=== PATIENT | female | born 1985 | race Caucasian/White ===

== ENCOUNTER 2022-06-28 13:15 | Emergency (ER) | payer OTHER, SELFPAY ==
[2022-06-28 13:28] VITALS: BP 138/94; PULSE 85; RESP 16; TEMP 36.9; O2SAT 100
[2022-06-28 13:36] VITALS: BP 138/94; PULSE 85; RESP 16; TEMP 36.9; O2SAT 100
--- NOTE | 2022-06-28 13:44 | ED.URI ---
HPI - URI/Sore Throat General Chief Complaint: Upper Respiratory Infection Stated Complaint: Sore Throat Time Seen by Provider: 06/28/22 13:49 Source: patient and RN notes reviewed Mode of arrival: ambulatory Limitations: no limitations History of Present Illness HPI Narrative: 36-year-old female presents with concern for sore throat. Reports symptoms started on after she was exposed to somebody with strep. She reports fever, chills, general malaise, sore throat. She also reports she has a history of asthma and is out of her inhaler and request a refill MD elicited complaint: sore throat Related Data Home Medications Medication Instructions Recorded Confirmed albuterol sulfate 90 mcg/actuation inhalation 06/28/22 aerosol inhaler Allergies Allergy/AdvReac Type Severity Reaction Status Date / Time No Known Allergies Allergy Verified 06/28/22 13:28 Review of Systems Review of Systems: CONSTITUTIONAL: Reports malaise, chills, sweats, fever. EYES: Denies visual changes, redness, or discharge. ENT: Reports rhinorrhea, congestion, otalgia and sore throat. CARDIOVASCULAR: Denies chest pain, palpitations, or edema. RESPIRATORY: Denies cough. Denies dyspnea. GASTROINTESTINAL: Denies abdominal pain, nausea, vomiting, diarrhea SKIN: Denies rash or itching. MUSCULOSKELETAL: Reports myalgia. NEUROLOGIC: Denies headache. All systems reviewed & are unremarkable except as noted in HPI and below PMFSH Comments At time of signature, agree with nursing past medical, surgical, social and family history. There is no relevant family history pertinent to the presenting complaint Exam Narrative: GENERAL: Well-appearing, well-nourished, and in no acute distress. HEAD: Normocephalic EYES: PERRLA, conjunctivae clear ENT: Nares clear, clear discharge. Mucous membranes moist. TM pearly sue with dull light reflex bilaterally; no tragal tenderness. Oropharynx erythematous without lesions. Tonsils enlarged with exudate, no drooling, no hoarseness, no trismus, uvula midline. NECK: Supple. No lymphadenopathy CHEST: Clear to auscultation, breath sounds equal. No wheezing, rhonchi, rales, or stridor. No respiratory distress, speaks in full sentences. HEART: Regular rate and rhythm. No murmur heard. SKIN: Warm, dry, no rash. NEURO: Alert and oriented x3. PSYCH: Normal mood and affect Course Course Emergency Course: Patient is aware of diagnosis, understands and agrees to treatment plan. Anticipatory guidance given. Patient agrees to follow-up as directed and is aware of reasons to seek care at the emergency department. Portions of this record may have been created with voice recognition software Level of Care: Express Care Visit Vital Signs Vital signs: Vital Signs Temperature 98.4 F 06/28/22 13:28 Pulse Rate 85 06/28/22 13:28 Respiratory Rate 16 06/28/22 13:28 Blood Pressure 138/94 H 06/28/22 13:28 Pulse Oximetry 100 06/28/22 13:28 Oxygen Delivery Room Air 06/28/22 13:28 Temperature 98.4 F 06/28/22 13:36 Pulse Rate 85 06/28/22 13:36 Respiratory Rate 16 06/28/22 13:36 Blood Pressure 138/94 H 06/28/22 13:36 Pulse Oximetry 100 06/28/22 13:36 Oxygen Delivery Room Air 06/28/22 13:36 Reviewed. MDM - URI/Sore Throat MDM Narrative Medical decision making narrative: Differential diagnosis considered: Hen[place] virus, strep pharyngitis, allergic rhinitis, upper respiratory tract infection, sinusitis, rhinosinusitis, nasopharyngitis. viral pharyngitis, otitis media, otitis externa, pneumonia, bronchitis, viral cough syndrome, viral syndrome, and influenza. Exam findings show no acute concerns or changes; patient is non-toxic appearing and is in no distress. Patient is appropriate for outpatient treatment and follow-up. Lab Data Attestation: I reviewed the patient's lab results. Labs: Strep Screen Positive Group A Strep *(Reference Ra
== END 2022-06-28 14:02 | disposition home or self-care (01) ==
PROVIDERS: Emergency Provider Nurse Practitioner; PCP Internal Medicine
DX: J02.0 Streptococcal pharyngitis (principal); J45.909 Unspecified asthma, uncomplicated
CPT/HCPCS: 87880; 99213; G0463

== ENCOUNTER 2022-06-28 22:03 | Emergency (ER) | payer OTHER, SELFPAY ==
[2022-06-28 22:30] VITALS: BP 116/77; PULSE 96; RESP 18; TEMP 36.3; O2SAT 100
--- NOTE | 2022-06-28 22:34 | PC.NURSE ---
Pt seen ambulating out of ED with steady gait
== END 2022-06-28 22:34 | disposition left against medical advice (07) ==
LOC: ANHED 22:50
PROVIDERS: PCP Internal Medicine
DX: R06.02 Shortness of breath (principal)
CPT/HCPCS: 99199

== ENCOUNTER 2023-01-05 12:34 | Emergency (ER) | payer OTHER, SELFPAY ==
[2023-01-05 12:44] VITALS: BP 134/93; PULSE 113; RESP 16; TEMP 36.9; O2SAT 99
--- NOTE | 2023-01-05 13:03 | ED.URI ---
HPI - URI/Sore Throat General Chief Complaint: Upper Respiratory Infection Stated Complaint: Asthma Time Seen by Provider: 01/05/23 13:03 Source: patient Mode of arrival: ambulatory Limitations: no limitations History of Present Illness HPI Narrative: 37 yo F with hx of asthma presents with c/o nasal congestion, sinus pressure, headaches for 10 days. Also has had cough. States asthma has been bothering her. Started steroids tuesday and was given breathing [facility]. Would like another neb today. Due to continued symptoms her work wants her to have a covid test. All systems reviewed and negative except as noted above. Related Data Allergies Allergy/AdvReac Type Severity Reaction Status Date / Time Penicillins Allergy Severe Dyspnea / Verified 01/05/23 12:54 SOB Review of Systems Review of Systems: CONSTITUTIONAL: Denies fever, chills, or sweats. reports fatigue. EYES: Denies visual changes, redness, or discharge. ENT: reports rhinorrhea, congestion, sore throat, or otalgia. CARDIOVASCULAR: Denies chest pain, palpitations, or edema. RESPIRATORY: reports cough and dyspnea. GASTROINTESTINAL: Denies abdominal pain, nausea, vomiting, or diarrhea. GENITOURINARY: Denies dysuria or hematuria. SKIN: Denies rash or itching. MUSCULOSKELETAL: Denies back pain, joint pain, or myalgia. NEUROLOGIC: Denies headache, numbness, or weakness. PSYCHIATRIC: Denies anxiety or depression. All other systems reviewed are negative, except as documented in HPI. PMFSH Comments At time of signature, agree with nursing past medical, surgical, social and family history. There is no relevant family history pertinent to the presenting complaint. Exam Narrative: GENERAL: This is a well-nourished, well-developed patient, in no apparent distress. HEAD: normocephalic, atraumatic. EYES: PERRL. Sclera clear/white. Vision is grossly intact. EARS: External ears normal, auditory canals clear and without drainage, fluid to bilateral TMs without erythema. NOSE: External nose normal with Nasal drainage, moderate congestion. THROAT: Mucous membranes moist, Postnasal drainage with erythema to posterior pharynx NECK: Neck supple, non-tender without lymphadenopathy, masses or thyromegaly. CARDIOVASCULAR: Regular rate and rhythm without murmurs, gallops, or rubs. RESPIRATORY: Clear to auscultation. Breath sounds equal bilaterally. No wheezes, rales, or rhonchi. SKIN: warm, Dry, intact with no suspicious lesions or rash, good texture and turgor. NEURO: awake, alert, and oriented to person, place and time. There were no obvious focal neurologic abnormalities. EXTREMITIES: No joint tenderness, effusion, or edema noted. Course Course Level of Care: Express Care Visit Vital Signs Vital signs: Vital Signs Temperature 36.9 C 01/05/23 12:44 Pulse Rate 113 H 01/05/23 12:44 Respiratory Rate 16 01/05/23 12:44 Blood Pressure 134/93 H 01/05/23 12:44 Pulse Oximetry 99 01/05/23 12:44 Oxygen Delivery Room Air 01/05/23 12:44 Temperature 36.9 C 01/05/23 12:44 Pulse Rate 113 H 01/05/23 12:44 Respiratory Rate 16 01/05/23 12:44 Blood Pressure 134/93 H 01/05/23 12:44 Pulse Oximetry 99 01/05/23 12:44 Oxygen Delivery Room Air 01/05/23 12:44 Reviewed MDM - URI/Sore Throat MDM Narrative Medical decision making narrative: Patient is aware of diagnosis, understands and agrees to treatment plan. Anticipatory guidance given. Patient agrees to follow-up as directed and is aware of reasons to seek care at the emergency department. Portions of this record may have been created with voice recognition software will treat patient for bacterial sinusitis with antibiotic due to duration of symptoms and exam findings. Differential Diagnosis Differential diagnosis: Likely sinusitis and other ( asthma exacerbation) Lab Data Labs: Strep Screen Presumptive Negative
[2023-01-05] MEDS: IPRATROPIUM BR 0.02% INH SOLN 0.5 MG/2.5 ML VIAL INHALATION (13:11)
[2023-01-05] MEDS: ALBUTEROL SULFATE NEB 2.5 MG/3 ML INH INHALATION (13:11)
== END 2023-01-05 13:59 | disposition home or self-care (01) ==
PROVIDERS: Emergency Provider Nurse Practitioner Family; PCP Internal Medicine
DX: J45.901 Unspecified asthma with (acute) exacerbation (principal); J01.90 Acute sinusitis, unspecified; Z20.822 Contact with and (suspected) exposure to COVID-19
CPT/HCPCS: 87081; 87147; 87426; 87880; 94640; 99213; C9803; G0463

== ENCOUNTER 2023-12-11 18:49 | Emergency (ER) | payer OTHER, SELFPAY ==
[2023-12-11 18:49] VITALS: BP 139/90; PULSE 71; RESP 19; TEMP 36.6; O2SAT 100
--- NOTE | 2023-12-11 19:08 | ED.DENTAL ---
HPI - Dental/Oral General Chief complaint: Dental/Oral Stated complaint: Dental Pain Time Seen by Provider: 12/11/23 19:08 Source: patient, RN notes reviewed and old records reviewed Mode of arrival: ambulatory Limitations: no limitations and intoxication ( denies, but does appear intoxicated) History of Present Illness HPI Narrative: Patient presents with complaints of dental infection. she reports extremely poor dentition at baseline, has not gone to the dentist. Reports she cannot afford to do so. She reports tooth that is bothering her the worst is right lower molar. There is active drainage from the site. She denies any fever, chills, sweats. Patient does appear to be intoxicated Related Data Allergies Allergy/AdvReac Type Severity Reaction Status Date / Time Penicillins Allergy Severe Dyspnea / Verified 12/11/23 18:57 SOB Review of Systems Review of Systems: All systems reviewed & are unremarkable except as noted in HPI and below Constitutional: Constitutional: Reports no additional constitutional complaints ENT: Reports system reviewed and no additional complaints, except as documented, Reports as per HPI, Reports dental pain and Reports mouth pain Cardiovascular: Cardiovascular: Reports no additional cardiovascular complaints Respiratory: Respiratory: Reports no additional respiratory complaints Gastrointestinal: Gastrointestinal: Reports no additional gastrointestinal complaints PMFSH Comments At the time of my signature, I reviewed and agree with the nursing past medical, surgical, social, and family history. There is no relevant family history pertinent to the patient complaint. Exam Const: General: cooperative, no acute distress, alert and awake Orientation/consciousness: oriented to person, oriented to place and oriented to time HENMT: Head: normal to inspection Ears: TM's normal bilaterally Mouth: Yes moist mucous membranes Teeth and gingiva: caries, gingiva abnormal with purulent discharge, diffusely erythematous and receding and poor dentition Resp: Effort & Inspection: normal respiratory effort and able to speak in complete sentences Auscultation: clear to auscultation bilaterally, no crackles, no rales, no rhonchi and no wheezes Cardio: Palpation: normal PMI Rate: regular rate Rhythm: regular rhythm Heart sounds: S1 normal heart sound present and S2 normal heart sound present Neuro: General: oriented to person, oriented to place and oriented to time Cranial nerves: Yes CN's II-XII intact bilaterally Psych: Appearance: grossly normal Thought process: Normal thought process present Insight: Good insight present (Psych) Judgement: Good judgement present (Psych) Course Course Level of Care: Express Care Visit Vital Signs Vital signs: Vital Signs Temperature 97.9 F 12/11/23 18:49 Pulse Rate 71 12/11/23 18:49 Respiratory Rate 19 12/11/23 18:49 Blood Pressure 139/90 12/11/23 18:49 Pulse Oximetry 100 12/11/23 18:49 Oxygen Delivery Room Air 12/11/23 18:49 Temperature 97.9 F 12/11/23 18:49 Pulse Rate 71 12/11/23 18:49 Respiratory Rate 19 12/11/23 18:49 Blood Pressure 139/90 12/11/23 18:49 Pulse Oximetry 100 12/11/23 18:49 Oxygen Delivery Room Air 12/11/23 18:49 Reviewed MDM - Dental/Oral MDM Narrative Medical decision making narrative: intoxicated appearing patient with extremely poor dentition. Dental referral list provided to her. Start clindamycin. Emergency department for any new or worse symptoms. She is nontoxic appearing. She does have a significant other with her who is paying attention to instructions. Some parts of this dictation were generated by voice recognition software and may contain typographical and/or grammatical inaccuracies. Discharge instructions reviewed with patient, as well as provided in writing per nursing staff. The instructions also include specific and strict return/GO TO THE ER as well as f/u
== END 2023-12-11 19:20 | disposition home or self-care (01) ==
PROVIDERS: Emergency Provider Nurse Practitioner Family; PCP Internal Medicine
DX: K04.7 Periapical abscess without sinus (principal); J45.909 Unspecified asthma, uncomplicated
CPT/HCPCS: 99213; G0463

== ENCOUNTER 2024-02-08 15:47 | Emergency (ER) | payer OTHER, SELFPAY ==
--- NOTE | ~2024-02-08 | XR_ITS ---
EXAMINATION: XR chest 2V DATE: 02/08/2024 16:41 INDICATION: Asthma presenting with cough TECHNIQUE: PA and lateral views of the chest were obtained. COMPARISON: Chest radiograph dated 09/19/2011 FINDINGS: The lungs are clear with no focal airspace opacities, pulmonary edema, pleural effusion or pneumothor ax. The cardiomediastinal silhouette is normal. Visualized bones and soft tissues are unremarkable. IMPRESSION: 1. No acute cardiopulmonary disease. Reviewed, dictated and finalized at location B. [facility]
[2024-02-08 15:50] VITALS: BP 152/93; PULSE 110; RESP 20; TEMP 36.8; O2SAT 97
--- NOTE | 2024-02-08 15:52 | ED.URI ---
HPI - URI/Sore Throat General Chief Complaint: Upper Respiratory Infection <Gaby Ricci PA-C - Last Filed: 02/10/24 09:19> Stated Complaint: cold symptoms (out of inhaler) <Gaby Ricci PA-C - Last Filed: 02/10/24 09:19> Time Seen by Provider: 02/08/24 15:52 <Gaby Ricci PA-C - Last Filed: 02/10/24 09:19> Focused HPI: This is a 38 year old female that presents to the ER for cold symptoms. Present over the last couple of weeks. Reports congestion, rhinorrhea, cough. Reports history of asthma. She ran out of her inhaler. Denies fevers. GENERAL: Well-appearing, well-nourished, and in no acute distress. HEAD: Normocephalic, atraumatic. CHEST: Clear to auscultation. ?No respiratory distress. HEART: Regular rate and rhythm.? NEURO: ?Alert and oriented x3. Patient screened in triage and initial orders placed.? ?Additional care and disposition to be based upon?diagnostic testing and treatment. <Gayb Ricci PA-C - Last Filed: 02/10/24 09:19> History of Present Illness HPI Narrative: 38-year-old female presenting with cold symptoms. States for the last several weeks she has had cough, nasal congestion. States that she ran out of her inhaler about a month ago. States that she has a history of asthma and she often needs her inhaler during the winter. States she thinks she just needs a new inhaler. No chest pain or shortness of breath. No further complaints. <Roxana Caraballo MD - Last Filed: 02/08/24 18:34> Related Data Allergies/Adverse Reactions: Allergies Allergy/AdvReac Type Severity Reaction Status Date / Time Penicillins Allergy Severe Dyspnea / Verified 12/11/23 18:57 SOB <Gaby Ricci PA-C - Last Filed: 02/10/24 09:19> Review of Systems Review of Systems: All systems reviewed & are unremarkable except as noted in HPI and below <Roxana Caraballo MD - Last Filed: 02/08/24 18:34> PMFSH Past Medical History Medical History: Medical History (Updated 02/10/24 @ 09:19 by Gaby Ricci PA-C) Asthma <Gaby Ricci PA-C - Last Filed: 02/10/24 09:19> Social History Social History: Social History (Updated 02/10/24 @ 09:18 by Gaby Ricci PA-C) Substance use: never <Gaby Ricci PA-C - Last Filed: 02/10/24 09:19> Exam Narrative: GENERAL: Well-appearing, In no acute distress, pleasant cooperative HEAD: Normocephalic, atraumatic. EYES: PERRLA and EOMI. ENT: grossly unremarkable NECK: Supple. CHEST: No respiratory distress. scattered expiratory wheezing HEART: Regular rate and rhythm ABDOMEN: Soft, nontender, nondistended EXTREMITIES: Normal range of motion. SKIN: Warm, dry, no rash. NEURO: Alert and oriented x3. PSYCH: Normal mood and affect. <Roxana Caraballo MD - Last Filed: 02/08/24 18:34> Course Vital Signs Vital signs: Vital Signs Temperature 98.3 F 02/08/24 15:50 Pulse Rate 110 H 02/08/24 15:50 Respiratory Rate 20 02/08/24 15:50 Blood Pressure 152/93 H 02/08/24 15:50 Pulse Oximetry 97 02/08/24 15:50 Oxygen Delivery Room Air 02/08/24 15:50 Temperature 97.8 F 02/08/24 18:41 Pulse Rate 92 02/08/24 18:41 Respiratory Rate 20 02/08/24 18:41 Blood Pressure 122/84 02/08/24 18:41 Pulse Oximetry 99 02/08/24 18:41 Oxygen Delivery Room Air 02/08/24 15:50 <Gaby Ricci PA-C - Last Filed: 02/10/24 09:19> Vital Signs Temperature 98.3 F 02/08/24 15:50 Pulse Rate 110 H 02/08/24 15:50 Respiratory Rate 20 02/08/24 15:50 Blood Pressure 152/93 H 02/08/24 15:50 Pulse Oximetry 97 02/08/24 15:50 Oxygen Delivery Room Air 02/08/24 15:50 Temperature 97.8 F 02/08/24 18:41 Pulse Rate 92 02/08/24 18:41 Respiratory Rate 20 02/08/24 18:41 Blood Pressure 122/84 02/08/24 18:41 Pulse Oximetry 99 02/08/24 18:41 Oxygen Delivery Room Air 02/08/24 15:50 <Roxana Caraballo MD - Last Filed: 02/08/24 18:34> MDM - URI/Sore Throat MDM Narrative Medical decision making narrative: 38-year-old female presenting with cough and congestion for about a month. Vitals are stable. Exam remarkable for the above. Her chest x-ray is unremarkable and she is negative for COVID, influenza, RSV. Patient was given a breathing treatment and some prednisone and states that she feels much improved after the breathing treatment. She would like to go home which I think is reasonable. Will send in for a course of prednisone as well as a new inhaler. She would like a new PCP, will provide the number for 1. Appropriate return precautions given. Discharged in stable condition. <Roxana Caraballo MD - Last Filed: 02/08/24 18:34> Lab Data Labs: Lab Results 02/08/24 Range/Units 16:55 Influenza A (RT-PCR) Negative (Negative) Influenza B (RT-PCR) Negative (Negative) RSV (RT-PCR) Negative (Negative) SARS-CoV-2 RNA (RT-PCR) Negative (Negative) <Gaby Ricci PA-C - Last Filed: 02/10/24 09:19> Lab Results 02/08/24 Range/Units 16:55 Influenza A (RT-PCR) Negative (Negative) Influenza B (RT-PCR) Negative (Negative) RSV (RT-PCR) Negative (Negative) SARS-CoV-2 RNA (RT-PCR) Negative (Negative) <Roxana Caraballo MD - Last Filed: 02/08/24 18:34> Imaging Data Radiologist's impression: ITS Impressions Chest X-Ray 02/08/24 16:43 IMPRESSION: 1. No acute cardiopulmonary disease. <Roxana Caraballo MD - Last Filed: 02/08/24 18:34> Critical Care Time Critical Care Time Critical Care Time: No <Roxana Caraballo MD - Last Filed: 02/08/24 18:34> Discharge Plan Discharge Clinical Impression: Asthma exacerbation <Gaby Ricci PA-C - Last Filed: 02/10/24 09:19> Patient Disposition: Home, Self-Care <Gaby Ricci PA-C - Last Filed: 02/10/24 09:19> Condition: Stable <Gaby Ricci PA-C - Last Filed: 02/10/24 09:19> Instructions: Antibiotic Form, Asthma (DC) <Gaby Ricci PA-C - Last Filed: 02/10/24 09:19> Additional Instructions: You are negative for COVID, influenza, RSV. Your chest x-ray shows no pneumonia. We are treating you with a new inhaler as well as a course of steroids. Please follow-up closely with primary care. If your symptoms worsen or other concerning symptoms arise, please return to the ER. <Gaby Ricci PA-C - Last Filed: 02/10/24 09:19> Prescriptions: New prednisone 20 mg tablet 40 mg PO DAILY Qty: 10 0RF albuterol sulfate 90 mcg/actuation HFA aerosol inhaler 2 inh inhalation QID PRN (Reason: shortness of breath or wheezing) Qty: 8.5 0RF No Action albuterol sulfate 90 mcg/actuation HFA aerosol inhaler 2 puff INHALATION QID PRN (Reason: shortness of breath or wheezing) Qty: 8.5 0RF (DME) nebulizers [AeroEclipse II Nebulizer] Misc See Rx Instructions .Route Qty: 1 0RF Rx Instructions: As directed (DME) nebulizer accessories Kit See Rx Instructions .Route Qty: 1 0RF Rx Instructions: As directed albuterol sulfate 2.5 mg /3 mL (0.083 %) solution for nebulization 2.5 mg inhalation Q6H PRN (Reason: shortness of breath or wheezing) Qty: 75 0RF clindamycin HCl 300 mg capsule 300 mg PO BID Qty: 20 0RF <Gaby Ricci PA-C - Last Filed: 02/10/24 09:19> Follow-up/Referrals: Bárbara Jones MD [Physician] - <MAYUR Robbins Filed: 02/10/24 09:19>
[2024-02-08 16:08] VITALS: PULSE 92; RESP 18
[2024-02-08] MEDS: IPRATROPIUM 0.5 MG/ALBUTEROL SULFATE 2.5 MG AMPUL.NEB 3 ML INHALATION (16:08)
[2024-02-08 16:17] VITALS: PULSE 100; RESP 18
[2024-02-08 17:06] VITALS: BP 140/90; PULSE 107; RESP 20; TEMP 36.9; O2SAT 97
[2024-02-08] MEDS: predniSONE 20 MG TABLET 40 MG PO (17:07)
[2024-02-08 17:57] LABS: Influenza A QL RT-PCR Negative (Negative); Influenza B QL RT-PCR Negative (Negative); RSV RNA, RT-PCR Negative (Negative); SARS-CoV-2 RNA PCR Negative (Negative)
[2024-02-08 18:41] VITALS: BP 122/84; PULSE 92; RESP 20; TEMP 36.6; O2SAT 99
== END 2024-02-08 18:44 | disposition home or self-care (01) ==
PROVIDERS: Physician Assistant; Emergency Provider Emergency Medicine; PCP Internal Medicine
DX: J45.901 Unspecified asthma with (acute) exacerbation (principal); Z20.822 Contact with and (suspected) exposure to COVID-19
CPT/HCPCS: 71046; 87637; 94640; 99283; J7512

== ENCOUNTER 2024-05-21 17:50 | Emergency (ER) | payer OTHER, SELFPAY ==
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
[2024-05-21 17:59] VITALS: BP 142/71; PULSE 100; RESP 18; TEMP 36.6; O2SAT 100
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
--- OUTSIDE RECORDS SUMMARY | 2024-05-21 19:01 | XMS_ITS | Clinical Summary ---
Author Organization [facility] Address Formerly [facility], later [facility] [place] [address] Care Team Providers Care Outpatient Phlebotomist Name Role Phone Unavailable Primary Care Provider Unavailabl e Social History Tobacco Use Types Packs/Day Years Used Date Smoking Tobacco: Never Assessed Comments Unknown Sex and Gender Information Value Date Recorded Sex Assigned at Not on file Legal Sex Female 8:35 PM CDT Gender Identity Not on file Sexual Orientation Not on file Plan of Treatment Health Maintenance Due Date Last Done Comments Cervical Cancer Screening Pa p Smear (Age 30 to 64) Every 3 Years 1983 Annual Physical 07/15/1986 Hepatitis C 07/15/2001 DTaP, Tdap and Td Vaccines ( 1 - Tdap) 07/15/2002 Hepatitis B Vaccines (1 of 3 - 19+ 3-dose series) 07/15/2002 Cervical Cancer Screening Pa p with HPV Testing (Age 30 to 64) Every 5 Years 07/15/2013 Cervical Cancer Screening with HPV 07/15/2013 Mammogram Screening 2023 COVID-19 Vaccine ( - 2023-2 5 season) 2023 Influenza Adult (#1) 2023 HPV Vaccines Aged Out No longer eligi ble based on patient's age to complete this topic Meningococcal B Vaccine Aged Out No l onger eligible based on patient's age to complete this topic Meningococcal Vaccine Aged Out No emmanuelle jennifer eligible based on patient's age to complete this topic Pneumococcal Vaccine: Pediat rics (0 to 5 Years) and At-Risk Patients (6 to 64 Years) Aged Out No longer eligible b ased on patient's age to complete this topic RSV Immunizations Under 20 Months Aged Out No longer eligible based on patient's age to complete this topic
--- OUTSIDE RECORDS SUMMARY | 2024-05-21 19:55 | XMS_ITS | Clinical Summary ---
Author Organization [place] Address [facility] [place] [address] Care Team Providers Care Motion Picture Cameraman Name Role Phone Unavailable Primary Care Provider [...]
[2024-05-21 20:02] LABS: BEDSIDEPREGUCG Negative (Negative)
[2024-05-21 20:22] LABS: Basophils Percent Auto 0.6 % (0.2-1.2); Eosinophils Absolute Auto 0.2 K/mm3 (0-0.3); Hematocrit 37.9 % (37.0-47.0); Hemoglobin 12.6 g/dL (12.0-15.0); Immature Granulocyte Absolute 0.03 K/mm3 (0.00-0.031); Immature Granulocyte Percent A 0.5 % (0-0.5); Lymphocytes Absolute Auto 1.84 K/mm3 (0.9-3.2); Lymphocytes Percent Auto 27.8 % (18.3-44.2); Mean Corpuscular HGB Conc 33.2 g/dl (32-36); Mean Corpuscular Hemoglobin 30.7 pg (26-34); Mean Corpuscular Volume 92.4 fl (80-100); Mean Platelet Volume 8.5 fl (7.4-10.4); Monocytes Absolute Auto 0.3 K/mm3 (0.1-0.6); Monocytes Percent Auto 4.8 % (2.6-8.5); Neutrophils Absolute Auto 4.2 K/mm3 (1.3-6.7); Neutrophils Percent Auto 63.3 % (45.5-73.1); Platelet Count Result 473 k/mm3 (150-375); Red Cell Distribution Width 14.1 % (11.5-14.5); White Blood Count 6.6 K/mm3 (4.5-10.0)
[2024-05-21 20:36] LABS: Alanine Aminotransferase 28 U/L (6-35); Alkaline Phosphatase 79 U/L (38-126); Anion Gap 12 mmol/L (4-12); Aspartate Amino Transferase 39 U/L (14-36); Bilirubin,Total 0.3 mg/dL (0.2-1.3); Blood Urea Nitrogen 10 mg/dL (7-17); Calcium 8.5 mg/dL (8.4-10.2); Carbon Dioxide 24 mmol/L (22-30); Chloride 105 mmol/L (98-107); Estimated CRCL calculation 82 ml/min; Estimated Glomerular Filt Rate > 60; Ethanol 195 mg/dL (<10); Glucose 104 mg/dL (65-110); INR 0.9; Potassium 3.7 mmol/L (3.4-5.0); Prothrombin Time 12.3 Seconds (11.1-14.7); Sodium 141 mmol/L (137-145)
[2024-05-21 20:37] LABS: Partial Thromboplastin Time 25.8 Seconds (22.3-36.8)
[2024-05-21] MEDS: MORPHINE SULFATE (*CRX) 4 MG/ML INJ IV PUSH (21:07)
[2024-05-21 22:08] VITALS: BP 143/73; PULSE 91; RESP 19; O2SAT 99
[2024-05-22] MEDS: HYDROcodone/acetaminophen (*CRX) 5-325 MG TABLET 1 TAB PO (01:35)
[2024-05-22 01:38] VITALS: BP 132/88; PULSE 87; RESP 17; O2SAT 98
== END 2024-05-22 01:39 | disposition home or self-care (01) ==
PROVIDERS: Physician Assistant; Emergency Provider Student in an Organized Health Care Education/Training Program; PCP Internal Medicine
DX: S52.551A Other extraarticular fracture of lower end of right radius, initial encounter for closed fracture (principal); J45.909 Unspecified asthma, uncomplicated; K20.90 Esophagitis, unspecified without bleeding; K29.70 Gastritis, unspecified, without bleeding; I77.810 Thoracic aortic ectasia; F10.129 Alcohol abuse with intoxication, unspecified; Y90.6 Blood alcohol level of 120-199 mg/100 ml; V03.10XA Pedestrian on foot injured in collision with car, pick-up truck or van in traffic accident, initial encounter
CPT/HCPCS: 29125; 36415; 70450; 71260; 72125; 73080; 73110; 74177; 80053; 81025; 82077; 85025; 85610; 85730; 96374; 99284; A9270; J2270; Q9967

== ENCOUNTER 2025-01-11 14:36 | Observation (INO) | payer OTHER, SELFPAY ==
--- NOTE | ~2025-01-11 | US_ITS ---
EXAMINATION: US OB follow up DATE: 01/11/2025 17:34 INDICATION: Uncertain dates. TECHNIQUE: Real-time ultrasound of the pelvis was performed. COMPARISON: None. FINDINGS: There is a single living fetus in variable presentation. The placenta is anterior. heart rate is 153 beats per minute (bpm). The amniotic fluid index is subjectively normal. The deepest vertical pocket is 4.4 cm. The following biometric data were obtained: Biparietal diameter (BPD): 3.3 cm; head circumference (HC): 12.1 cm; abdominal circumference (AC): 10.4 cm; femur length (FL): 2.0 cm. These measurements are concordant. Estimated weight is 147 g +/- 22 g. As single measurements, these parameters are each equal to the following estimated gestational ages: BPD: 16 weeks 3 days. HC: 16 weeks 0 days. AC: 16 weeks 3 days. FL: 16 weeks 0 days. estimated gestational age based solely on measurements from this exam is 16 weeks 2 days +/- 1 weeks 1 days. IMPRESSION: 1. Single living fetus in variable presentation. 2. Estimated date of delivery of 06/26/2025. Reviewed, dictated and finalized at location E.
[2025-01-11 14:49] VITALS: PULSE 80; O2SAT 100
--- OUTSIDE RECORDS SUMMARY | 2025-01-11 14:49 | XMS_ITS | Clinical Summary ---
Author Organization [facility] Address [facility] [place] [address] Care Team Providers Care Spray Painter Name Role Phone Unavailable Primary Care Provider [...] of 3 - 19+ 3-dose series) 07/15/2002 HPV Vaccines (1 - 3-dose SCD M series) 07/15/2010 Cervical Cancer Screening Pa p with HPV Testing (Age 30 to 64) Every 5 Years 07/15/2013 Cervical Cancer Screening with HPV 07/15/2013 Mammogram Screening 2023 COVID-19 Vaccine (2023-2 5 season) 2024 Influenza Adult (#1) 2024 Meningococcal B Vaccine Aged Out No l onger eligible based on patient's age to complete this topic Meningococcal Vaccine Aged Out No emmanuelle jennifer eligible based on patient's age to complete this topic Pneumococcal Vaccine: Pediat rics (0 to 5 Years) and At-Risk Patients (6 to 49 Years) Aged Out No longer eligible b ased on patient's age to complete this topic RSV Immunizations Under 20 Months Aged Out No longer eligible based on patient's age to complete this topic
[2025-01-11 14:51] VITALS: PULSE 105; PULSE 84; O2SAT 84; O2SAT 95
[2025-01-11 14:52] VITALS: PULSE 92; PULSE 99; O2SAT 95
[2025-01-11 16:28] LABS: Add Urine Microscopic? YES; Appearance Urine Cloudy (Clear); Glucose Urine UA Negative (Negative); Leukocyte Esterase Ur Negative LEU/UL (Negative); Nitrate Urine Negative (Negative); Non Pathogenic Casts 0-2; Specific Grav Ur 1.011 (1.001-1.035)
--- NOTE | 2025-01-11 16:36 | PC.NURSE ---
Dr. Drake on unit. Informed of pt admission for cramping. No care. FHTs 150's. PT states that she thinks she is about 22weeks. UA results given. Orders received for ultrasound. Call with results.
--- NOTE | 2025-01-11 18:43 | PC.NURSE ---
Called Dr. Drkae with ultrasound report. Informed that pt states that she is cramping q 10 min lasting 1-2 min. No contractions noted on tracing. July D/C home.
--- NOTE | 2025-01-11 18:53 | PC.NURSE ---
DISCHARGE INSTRUCTIONS GIVEN TO PT VERBALLY AND WRITTEN. PT DENIES QUESTIONS OR CONCERNS AND VERBALIZES UNDERSTANDING. PHYSICIAN REFERRAL CARD GIVEN. PT LEAVES L&D AMBULATORY, NO DISTRESS NOTED.
[2025-01-11 19:18] VITALS: BMI 22.4
--- NOTE | 2025-01-11 19:19 | OBADM ---
This patient, Nancy Diamond, admitted to the OB room OB Post 116 for observation. Patient/family oriented to hospital policies and general routines including ID bracelet, bed and alarms, visiting hours, pain management, procedures, bathroom and other care routines, personal items, smoking policy, room service/diet, and visiting hours. Patient/Family are encouraged to report perceived risks to care and to ask questions if they do not understand what they are told or what they should do.
--- NOTE | 2025-01-23 08:13 | PM.OBTRLD ---
OB - Triage/Final Diagnosis Visit Information Comments/Additional reasons for admission: I have assessed the risk for this patient, Nancy Diamond, and determined that she would benefit from observation care. Evaluation Laboratory results: Laboratory Tests 01/11/25 16:12 Urine Color Yellow Urine Appearance Cloudy H Urine pH 6.5 Ur Specific [place] 1.011 Urine Protein Negative Urine Glucose (UA) Negative Urine Ketones Negative Ur Blood (Man) Negative Urine Nitrate Negative Urine Bilirubin Negative Urine Urobilinogen 0.2 Ur Leukocyte Esterase Negative Urine RBC 0-2 Urine WBC 0-5 Ur Squamous Epith Cells Few Urine Bacteria None seen Urine Casts 0-2 Final Diagnosis (1) Abdominal pain affecting : Code(s): O26.899 - Other specified related conditions, unspecified trimester; R10.9 - Unspecified abdominal pain Status: Acute
== END 2025-01-11 18:55 | disposition home or self-care (01) ==
PROVIDERS: Admitting Provider Obstetrics & Gynecology; PCP Internal Medicine; Visit Provider Obstetrics & Gynecology
DX: O26.899 Other specified pregnancy related conditions, unspecified trimester (principal); R10.9 Unspecified abdominal pain
CPT/HCPCS: 76816; 81001; G0378; G0379